=== PATIENT | male | born 1955 | race African-American/Black ===

== ENCOUNTER 2017-12-05 11:34 | Emergency (ER) | payer OTHER ==
[2017-12-05] MEDS ORDERED: AMLODIPINE 5 MG TAB ONE (12:18)
--- NOTE | 2017-12-05 12:25 | RAD REPORT ---
EXAM DESCRIPTION: CT - Head Brain Wo Cont - 12/05/2017 12:15 pm CLINICAL HISTORY: Hypertension, headache COMPARISON: None. TECHNIQUE: All CT scans are performed using dose optimization technique as appropriate and may inclu de automated exposure control or mA/KV adjustment according to patient size. FINDINGS: No intracranial hemorrhage, hydrocephalus or extra-axial fluid collection.No areas of brai n edema or evidence of midline shift. The paranasal sinuses and mastoids are clear. The calvarium is intact. IMPRESSION: No acute intracranial abnormality.
[2017-12-05 13:16] LABS: Urine Blood TRACE (NEG); Urine Glucose NEGATIVE (NEG); Urine Protein 1+ (NEG); Urine pH 6.5 (5.0-7.0)
--- NOTE | 2017-12-05 14:13 | ER ---
Nurse's Notes [facility] Name: Barney Aguilar Age: 62 yrs Sex: Male : 1955 Arrival Date: 12/05/2017 Time: 11:40 Bed 18 Private MD: Diagnosis: Essential (primary) hypertension Presentation: 12/05 11:43 Presenting complaint: Patient states: my blood pressure is too high to pass my jobs ch requirement. I feel a little floating funny in my L upper head, off and on for months. seems to be more frequent. Transition of care: patient was not received from another setting of care. Onset of symptoms was 2016. Care prior to arrival: None. 11:43 Method Of Arrival: Ambulatory 11:43 Acuity: JASVIR 3 ch Triage Assessment: 11:45 General: Appears in no apparent distress. comfortable, Behavior is calm, cooperative, ch appropriate for age. Pain: Complains of pain in top of head Pain currently is 2 out of 10 on a pain scale. Neuro: No deficits noted. Reports dizziness. Historical: - Allergies: 11:45 No Known Allergies; - Home Meds: 11:45 lisinopril 40 mg Oral tab 1 tab once daily [Active]; - PMHx: 11:45 Hypertension; (both siblings of brain anurisms); - PSHx: 11:45 None; - Immunization history:: Adult Immunizations up to date, Flu vaccine is up to date. - Social history:: Smoking status: Patient uses tobacco products, chewing tobacco, Patient/guardian denies using alcohol, street drugs. Screenin:19 Abuse screen: Denies threats or abuse. Denies injuries from another. Nutritional wh screening: No deficits noted. Tuberculosis screening: No symptoms or risk factors identified. Fall Risk None identified. Assessment: 13:09 General: Appears in no apparent distress. comfortable. wh 13:15 General: Behavior is calm, cooperative, appropriate for age. Pain: Denies pain. Neuro: wh Level of Consciousness is awake, alert, obeys commands, Oriented to person, place, time, situation, Continuity Clerk are equal bilaterally Reports lightheadedness. Cardiovascular: Denies chest pain, Heart tones S1 S2 Capillary refill < 3 seconds Patient's skin is warm and dry. Respiratory: Airway is patent Respiratory effort is even, unlabored, Respiratory pattern is regular, symmetrical, Breath sounds are clear bilaterally. GI: Abdomen is round non-distended, Abd is soft and non tender. : No signs and/or symptoms were reported regarding the genitourinary system. EENT: No signs and/or symptoms were reported regarding the EENT system. Derm: Skin is intact, is healthy with good turgor, Skin is pink, warm \T\ dry. normal. Musculoskeletal: Range of motion: intact in all extremities. 14:03 Reassessment: Patient appears in no apparent distress at this time. Patient and/or wh family updated on plan of care and expected duration. Pain level reassessed. Patient is alert, oriented x 3, equal unlabored respirations, skin warm/dry/pink. Patient denies pain at this time. 14:51 Reassessment: Patient appears in no apparent distress at this time. Patient and/or wh family updated on plan of care and expected duration. Pain level reassessed. Patient is alert, oriented x 3, equal unlabored respirations, skin warm/dry/pink. Patient denies pain at this time. Vital Signs: 11:45 BP 198 / 112; Pulse 58; Resp 18; Temp 98.1; Pulse Ox 99% on R/A; Weight 99.79 kg; ch Height 5 ft. 11 in. (180.34 cm); Pain 2/10; 12:45 BP 154 / 91; Pulse 54; Resp 15; Pulse Ox 96% on R/A; wh 13:00 BP 175 / 95; Pulse 55; wh 13:21 BP 177 / 90; Pulse 51; wh 13:36 BP 179 / 93; Pulse 52; Resp 15; Pulse Ox 100% ; mh5 14:51 BP 167 / 88; Pulse 55; Resp 17; Pulse Ox 97% on R/A; wh 11:45 Body Mass Index 30.68 (99.79 kg, 180.34 cm) ED Course: 11:40 Patient arrived in ED. mr 11:44 Triage completed. 11:45 Arm band placed on left wrist. Patient placed in waiting room. 11:54 Roberta Miller FNP-C [facility]. snw 11:54 Alfie Sellers MD is Attending Physician. snw 11:58 Zbigniew Riojas is Primary Nurse. 12:[address] via wheelchair. jj2 12:15 CT completed. Patient moved back from CT. jj2 12:16 CT Head Brain wo Cont In Process Unspecified. EDMS 13:19 Patient has correct armband on for positive identification. Placed in gown. Bed in low wh position. Call light in reach. Side rails up X 1. wink cutter operator on. Pulse ox on. NIBP on. 14:53 No provider procedures requiring assistance completed. Patient did not have IV access during this emergency room visit. Administered Medications: 12:01 Drug: Norvasc 5 mg Route: PO; 13:08 Follow up: Response: No adverse reaction Outcome: 14:12 Discharge ordered by MD. snw 14:53 Discharged to home ambulatory. 14:53 Condition: improved 14:53 Discharge instructions given to patient, Instructed on discharge instructions, follow up and referral plans. medication usage, POC Hypertension Demonstrated understanding of instructions, follow-up care, medications, POC Prescriptions given X 1. 14:54 Patient left the ED. Signatures: Dispatcher [employer] EDMS Kim Lomax, TOMI RN Roberta Rodriguez, GASOLINE FINISHER-C GASOLINE FINISHER-Csnw Franchesca Miller mr Sutton, Cortez Mcfarland, Franchesca [facility] Zbigniew Riojas Corrections: (The following items were deleted from the chart) 13:14 13:00 BP 154 / 91; Pulse 54bpm; Resp 15bpm; Pulse Ox 96% RA; mh5
--- NOTE | 2017-12-05 14:13 | EDPHYS ---
Physician Documentation [facility] Name: Barney Aguilar Age: 62 yrs Sex: Male : 1955 Arrival Date: 12/05/2017 Time: 11:40 Bed 18 Private MD: ED Physician Alfie Sellers HPI: 12/05 12:14 This 62 yrs old Black Male presents to ER via Ambulatory with complaints of High Blood snw Pressure. 12:14 The patient has elevated blood pressure and discovered this at home. Onset: The snw symptoms/episode began/occurred 3 month(s) ago, and became worse. Modifying factors:. Severity of symptoms: At its worst the blood pressure was 200 mm Hg. The patient has experienced similar episodes in the past. It is unknown whether or not the patient has recently seen a physician. Historical: - Allergies: 11:45 No Known Allergies; ch - Home Meds: 11:45 lisinopril 40 mg Oral tab 1 tab once daily [Active]; ch - PMHx: 11:45 Hypertension; (both siblings of brain anurisms); ch - PSHx: 11:45 None; ch - Immunization history:: Adult Immunizations up to date, Flu vaccine is up to date. - Social history:: Smoking status: Patient uses tobacco products, chewing tobacco, Patient/guardian denies using alcohol, street drugs. ROS: 12:13 Constitutional: Negative for fever, chills, and weight loss, Eyes: Negative for injury, snw pain, redness, and discharge, ENT: Negative for injury, pain, and discharge, Neck: Negative for injury, pain, and swelling, Cardiovascular: Negative for chest pain, palpitations, and edema, Respiratory: Negative for shortness of breath, cough, wheezing, and pleuritic chest pain, Abdomen/GI: Negative for abdominal pain, nausea, vomiting, diarrhea, and constipation, Back: Negative for injury and pain, : Negative for injury, bleeding, discharge, and swelling, MS/Extremity: Negative for injury and deformity, Skin: Negative for injury, rash, and discoloration. 12:13 Neuro: Positive for lightheaded, floating feeling, pt states 2 siblings of cerebral aneurysm. . Exam: 12:29 Constitutional: This is a well developed, well nourished patient who is awake, alert, snw and in no acute distress. Head/Face: Normocephalic, atraumatic. Eyes: Pupils equal round and reactive to light, extra-ocular motions intact. Lids and lashes normal. Conjunctiva and sclera are non-icteric and not injected. Cornea within normal limits. Periorbital areas with no swelling, redness, or edema. ENT: Nares patent. No nasal discharge, no septal abnormalities noted. Tympanic membranes are normal and external auditory canals are clear. Oropharynx with no redness, swelling, or masses, exudates, or evidence of obstruction, uvula midline. Mucous membranes moist. Neck: Trachea midline, no thyromegaly or masses palpated, and no cervical lymphadenopathy. Supple, full range of motion without nuchal rigidity, or vertebral point tenderness. No Meningismus. Chest/axilla: Normal chest wall appearance and motion. Nontender with no deformity. No lesions are appreciated. Cardiovascular: Regular rate and rhythm with a normal S1 and S2. No gallops, murmurs, or rubs. Normal PMI, no JVD. No pulse deficits. Respiratory: Lungs have equal breath sounds bilaterally, clear to auscultation and percussion. No rales, rhonchi or wheezes noted. No increased work of breathing, no retractions or nasal flaring. Abdomen/GI: Soft, non-tender, with normal bowel sounds. No distension or tympany. No guarding or rebound. No evidence of tenderness throughout. Back: No spinal tenderness. No costovertebral tenderness. Full range of motion. Skin: Warm, dry with normal turgor. Normal color with no rashes, no lesions, and no evidence of cellulitis. MS/ Extremity: Pulses equal, no cyanosis. Neurovascular intact. Full, normal range of motion. Neuro: Awake and alert, GCS 15, oriented to person, place, time, and situation. Cranial nerves II-XII grossly intact. Motor strength 5/5 in all extremities. Sensory grossly intact. Cerebellar exam normal. Normal gait. Vital Signs: 11:45 BP 198 / 112; Pulse 58; Resp 18; Temp 98.1; Pulse Ox 99% on R/A; Weight 99.79 kg; ch Height 5 ft. 11 in. (180.34 cm); Pain 2/10; 12:45 BP 154 / 91; Pulse 54; Resp 15; Pulse Ox 96% on R/A; wh 13:00 BP 175 / 95; Pulse 55; wh 13:21 BP 177 / 90; Pulse 51; wh 13:36 BP 179 / 93; Pulse 52; Resp 15; Pulse Ox 100% ; mh5 14:51 BP 167 / 88; Pulse 55; Resp 17; Pulse Ox 97% on R/A; wh 11:45 Body Mass Index 30.68 (99.79 kg, 180.34 cm) ch MDM: 11:54 Patient medically screened. snw 12:13 Data reviewed: vital signs, nurses notes. Data interpreted: Pulse oximetry: on room air snw is 99 %. Interpretation: normal. Counseling: I had a detailed discussion with the patient and/or guardian regarding: the historical points, exam findings, and any diagnostic results supporting the discharge/admit diagnosis, the presence of at least one elevated blood pressure reading (>120/80) during this emergency department visit, radiology results, the need for outpatient follow up, to return to the emergency department if symptoms worsen or persist or if there are any questions or concerns that arise at home. Awaiting: CT scan results. 12/05 12:07 Order name: Urine Dipstick--Ancillary (enter results); Complete Time: 13:16 bd 12/05 11:56 Order name: CT Head Brain wo Cont; Complete Time: 12:28 snw 12/05 12:58 Order name: BP Recheck: q15min; Complete Time: 13:09 snw Administered Medications: 12:01 Drug: Norvasc 5 mg Route: PO; 13:08 Follow up: Response: No adverse reaction Disposition: 22:38 Co-signature as Attending Physician, Alfie Sellers MD I agree with the assessment and kdr plan of care. Disposition: 12/05/17 14:12 Discharged to Home. Impression: Essential (primary) hypertension. - Condition is Stable. - Discharge Instructions: Hypertension, Heart Disease Prevention, DASH Eating Plan, Managing Your High Blood Pressure. - Prescriptions for Norvasc 5 mg Oral Tablet - take 1 tablet by ORAL route once daily; 20 tablet. - Medication Reconciliation Form, Thank You Letter, Antibiotic Education form. - Follow up: Private Physician; When: 1 week; Reason: Recheck today's complaints, Continuance of care, Re-evaluation by your physician. Follow up: Emergency Department; When: As needed; Reason: Worsening of condition. Signatures: Dispatcher [employer] Kim Pedroza, RN RN Alfie Gómez MD MD kdr Therrien, Shelly, KILN FIREMAN-C KILN FIREMAN-Zbigniew Calloway
== END 2017-12-05 14:54 | disposition home or self-care (01) ==
LOC: ER 11:34
DX: I10 Essential (primary) hypertension (principal)
CPT/HCPCS: 70450; 81003; 99285